=== PATIENT | female | born 1980 | race Caucasian/White ===

== ENCOUNTER → 2023-08-12 09:24 | Outpatient (REF) | payer BC, SELFPAY | LOC: HWRAD 09:24 | PROVIDERS: ATTENDING PHYSICIAN Family Medicine | DX: R14.0 Abdominal distension (gaseous) (principal); M54.50 Low back pain, unspecified; R63.5 Abnormal weight gain; Z87.42 Personal history of other diseases of the female genital tract | CPT/HCPCS: 76830; 76856 ==

== ENCOUNTER → 2023-09-06 14:22 | Outpatient (REF) | payer BC, SELFPAY | LOC: WDC 14:22 | PROVIDERS: ATTENDING PHYSICIAN Physician Assistant | DX: Z12.31 Encounter for screening mammogram for malignant neoplasm of breast (principal) | CPT/HCPCS: 77063; 77067 ==

== ENCOUNTER → 2023-11-14 16:57 | Outpatient (REF) | payer OTHER, SELFPAY | LOC: RAD 16:57 | PROVIDERS: ATTENDING PHYSICIAN Family Medicine | DX: S92.514A Nondisplaced fracture of proximal phalanx of right lesser toe(s), initial encounter for closed fracture (principal) | CPT/HCPCS: 73630 ==

== ENCOUNTER → 2023-11-21 07:51 | Outpatient (REF) | payer OTHER, SELFPAY | LOC: WDC 07:51 | PROVIDERS: ATTENDING PHYSICIAN Physician Assistant | DX: R92.2 Inconclusive mammogram (principal) | CPT/HCPCS: 76641 ==

== ENCOUNTER → 2023-11-22 18:11 | Outpatient (REF) | payer OTHER, SELFPAY | LOC: PAVMRI 18:11 | PROVIDERS: ATTENDING PHYSICIAN Family Medicine | DX: S92.324A Nondisplaced fracture of second metatarsal bone, right foot, initial encounter for closed fracture (principal) | CPT/HCPCS: 73718 ==

== ENCOUNTER → 2024-05-28 07:56 | Outpatient (REF) | payer OTHER, SELFPAY | LOC: WDC 07:56 | PROVIDERS: ATTENDING PHYSICIAN Physician Assistant | DX: R92.8 Other abnormal and inconclusive findings on diagnostic imaging of breast (principal) | CPT/HCPCS: 76642 ==

== ENCOUNTER → 2024-10-09 17:34 | Outpatient (REF) | payer OTHER, SELFPAY | LOC: WDC 17:34 | PROVIDERS: ATTENDING PHYSICIAN Nurse Practitioner Women's Health; FAMILY PHYSICIAN Physician Assistant | DX: Z12.31 Encounter for screening mammogram for malignant neoplasm of breast (principal) | CPT/HCPCS: 77063; 77067 ==